=== PATIENT | male | born 1960 | race Caucasian/White ===

== ENCOUNTER → 2023-06-05 | Outpatient (CLI) | payer MEDICARE ==
[~2023-06-05] MED LIST: AMLODIPINE BESY10 MG PO; ASPIR LOW81 MG PO; ATORVASTATIN CA20 M1 PO; DRAMAMINE LESS25 MG PO; KLOR-CON 1010 ME1 PO; LEVOFLOXACIN500 MG PO; LOSARTAN POTASS1 TA6 PO; ONE DAILY HEAL1 EACH PO; ROBITUSSIN AC 110 ML PO
== END | disposition home or self-care (01) ==
LOC: RESCLI 15:22
PROVIDERS: ATTEND Internal Medicine
DX: I48.91 Unspecified atrial fibrillation (principal); I10 Essential (primary) hypertension; Z88.0 Allergy status to penicillin; Z98.890 Other specified postprocedural states; Z79.899 Other long term (current) drug therapy; Z79.01 Long term (current) use of anticoagulants

== ENCOUNTER → 2024-06-24 | Outpatient (CLI) | payer MEDICARE | END | disposition home or self-care (01) | LOC: RESCLI 01:40 | PROVIDERS: ATTEND Internal Medicine | DX: I48.0 Paroxysmal atrial fibrillation (principal); I10 Essential (primary) hypertension; E78.5 Hyperlipidemia, unspecified; R53.83 Other fatigue; I11.0 Hypertensive heart disease with heart failure; I50.9 Heart failure, unspecified; Z88.0 Allergy status to penicillin; Z79.82 Long term (current) use of aspirin; Z79.899 Other long term (current) drug therapy ==